=== PATIENT | female | born 1985 | race Caucasian/White ===

== ENCOUNTER 2017-07-06 13:46 | Emergency (ER) | payer MEDICAID ==
[2017-07-06 13:52] VITALS: RESP 16
--- NOTE | 2017-07-06 14:42 | EDPHY ---
H & P Stated Complaint: 3 months growth on r foot getting bigger/painful Time Seen by Provider: 07/06/17 14:41 HPI/ROS: HPI: This is a 31-year-old female who presents with Chief Complaint: 3 months growth on right foot getting bigger/painful Location: Top of right foot Quality: Growth Duration: 3 months Signs and Symptoms: No bleeding, no radiation, no numbness, no weakness, no tingling, no incontinence, no decreased range of motion, + swelling, + pain Timing: Constant Severity: Mild Context: Patient works on her feet all day has noted soft mass on the top of her right foot that has remained constant over the last 3 months. She has no PCP and has not followed up with any primary care provider. She denies any fever/radiation/Trauma/injury. She is ambulatory without deficits. She reports that her pain is worsened when the top of her shoe rubs on the cyst- like mass. Modifying Factors: None Comment: ROS: see HPI Constitutional: No fever, no chills, no weight loss Eyes: No blurred vision Respiratory: No shortness of breath, no cough Cardiovascular: No chest pain Gastrointestinal: No nausea, no vomiting no diarrhea Genitourinary: No dysuria Extremities: No myalgias Neurologic: No weakness, no numbness Skin: No rashes Hematologic: No bruising, no bleeding MEDICAL/SURGICAL/SOCIAL HISTORY: Medical history: Anxiety, depression Surgical history: Denies Social history: Employed. CONSTITUTIONAL: Extremely well-appearing adult white female awake and alert, no obvious distress HEENT: Atraumatic and normocephalic, PERRL, EOMI. Tympanic membranes clear. Oropharynx clear, no exudate and moist pink mucosa. Airway patent. No lymphadenopathy. No meningismus. Cardiovascular: Normal S1/S2, regular rate, regular rhythm, without murmur rub or gallop. PULMONARY/CHEST: Symmetrical and nontender. Clear to auscultation bilaterally. Good air movement. No accessory muscle usage. ABDOMEN: Soft, nondistended, nontender, no rebound, no guarding, no peritoneal signs, no masses or organomegaly. No CVAT. EXTREMITIES: 2/2 DP and PT pulses, strength 5/5, right mid foot 4 mm subcutaneous skin color soft cystic mass. no deformities, no clubbing, no cyanosis or edema. NEUROLOGICAL: no focal neuro deficits. GCS 15. SKIN: Warm and dry, no erythema. no rash. Good capillary refill. Source: Patient Exam Limitations: No limitations - Personal History LMP (Females 10-55): 22-28 Days Ago Current Tetanus/Diphtheria Vaccine: Yes - Medical/Surgical History Hx Asthma: No Hx Chronic Respiratory Disease: No Hx Diabetes: No Hx Cardiac Disease: No Hx Renal Disease: No Hx Cirrhosis: No Hx Alcoholism: No Hx HIV/AIDS: No Hx Splenectomy or Spleen Trauma: No Other PMH: anxiety Depression - Social History Smoking Status: Current every day smoker Constitutional: Initial Vital Signs Temperature (C) 36.6 C 07/06/17 13:50 Heart Rate 65 07/06/17 13:50 Respiratory Rate 16 07/06/17 13:50 Blood Pressure 122/62 H 07/06/17 13:50 O2 Sat (%) 95 07/06/17 13:50 O2 Delivery Mode Room Air Allergies/Adverse Reactions: Penicillins Allergy (Verified 07/06/17 13:50) Home Medications: Medication Instructions Recorded NK [No Known Home Meds] 07/06/17 Medical Decision Making - Diagnostics Imaging Results: Imaging Impressions Foot X-Ray 07/06/17 14:45 Impression: Mild hallux valgus, otherwise negative right foot radiographs. ED Course/Re-evaluation: Right foot x-ray shows no fracture dislocation No signs of neurovascular compromise/tenting of skin/compartment syndrome/ extremities and joints examined above and below area of concern and are neurovascularly intact/cellulitis. Advised to use a bunion pad, rice therapy, podiatry follow-up This patient was seen under the supervision of my secondary supervising physician. I evaluated care for this patient independently. Differential Diagnosis: Differential diagnosis includes but is not limited to cyst, mass, abscess, fracture, ligament strain. Departure - Departure Disposition: Home, Routine, Self-Care Clinical Impression: Right foot pain, Ganglion cyst of right foot Condition: Good Instructions: Ganglion Cysts (ED), Ganglion Cyst Removal (DC) Additional Instructions: Please wear proper fitting shoes that are not too tight on your feet. Take Tylenol 650 mg every 4 hours and/or Ibuprofen 600 mg every 8 hours with food as needed for pain. Apply ice for 30 minutes at a time; 2-3 times per day for the next 1-2 days. Purchase a bunion pad to distribute pressure against the area of concern. Follow up with Podiatry in 1-2 weeks at which time they will evaluate and recommend with you if conservative management versus adjuvant therapy is indicated. The x-rays obtained in the emergency department today demonstrate no evidence of an obvious fracture. Sometimes fractures are not obvious on the initial set of x-rays performed in the ED. For this reason, you should have repeat x-rays performed in 7-10 days if you are having any pain exclude the possibility of an occult fracture. Referrals: Alba Chauhan DPM [Doctor of Podiatric Medicine] - As per Instructions
[2017-07-06 15:53] VITALS: BP 111/75; PULSE 66; TEMP 98.4; O2SAT 99
== END 2017-07-06 15:51 | disposition home or self-care (01) ==
DX: M67.471 Ganglion, right ankle and foot (principal); F17.200 Nicotine dependence, unspecified, uncomplicated